=== PATIENT | male | born 1985 | race Two or more races ===

== ENCOUNTER 2023-03-26 17:33 | Emergency (ER) | payer MEDICAID ==
[~2023-03-26] VITALS: Ht 170.2 cm; Wt 81.8 kg
[2023-03-26 19:27] VITALS: BP 122/76; PULSE 88; RESP 16; TEMP 98
[2023-03-26] MEDS ORDERED: AMOX875T4 PO (21:51)
[2023-03-26] MEDS ORDERED: IBUP-1456 PO (21:51)
[2023-03-26 22:21] VITALS: O2SAT 96
[2023-04-06] MEDS ORDERED: IBUP-1456 PO (10:51)
[2023-04-06] MEDS ORDERED: AZIT500T66 PO (10:51)
== END 2023-03-26 22:46 | disposition home or self-care (01) ==
LOC: ER 17:33
DX: T16.2XXA Foreign body in left ear, initial encounter (principal); Z79.1 Long term (current) use of non-steroidal anti-inflammatories (NSAID); Z79.2 Long term (current) use of antibiotics; X58.XXXA Exposure to other specified factors, initial encounter; Y93.89 Activity, other specified; Y92.89 Other specified places as the place of occurrence of the external cause; Y99.8 Other external cause status
CPT/HCPCS: 69200